=== PATIENT | female | born 1970 | race Caucasian/White ===

== ENCOUNTER 2018-02-16 07:28 | Day surgery (SDC) | END 2018-02-16 17:00 | disposition home or self-care (01) ==

== ENCOUNTER 2018-10-31 09:28 | Emergency (ER) | payer MEDICAID ==
[~2018-10-31] VITALS: Wt 72.9 kg
[~2018-10-31 09:28] MED LIST: [UNRECOGNIZED DRUG - OTHER] PO
[2018-10-31] MEDS ORDERED: KETOROLAC 30 MG INJ IV STA (10:22)
[2018-10-31] MEDS ORDERED: SOD CHLORIDE 0.9% 1,000 ML IV STA (12:27)
[2018-10-31] MEDS ORDERED: SOD CHLORIDE 0.9% 100 ML ONE (12:36)
[2018-10-31] MEDS ORDERED: IOHEXOL 100 ML ONE (12:36)
[2018-10-31 14:26] VITALS: BP 137/74; PULSE 58; RESP 18
[2018-10-31] MEDS ORDERED: IBUP-1542 PO (14:29)
--- NOTE | 2018-10-31 14:33 | ERD ---
ER Documentation Chief Complaint Chief Complaint CWP RAD BACK, ARMS, X 5 DAYS HPI Patient is a 47-year-old female with rheumatoid arthritis who presents with chest pain. Her symptoms started on Monday. The pain is been constant and sharp and radiates to her left arm. Today it was worse with deep breaths and moving. She has no treatment as of yet. Upon review of old medical records the patient has multiple visits for various complaints. She does not currently have a primary doctor. ROS All systems reviewed and are negative except as per history of present illness. Medications Home Meds Active Scripts Ibuprofen* (Motrin*) 600 Mg Tab, 600 MG PO Q6H PRN for PAIN AND OR ELEVATED TEMP, #30 TAB Prov:MARA CANO MD 10/31/18 Reported Medications [[place]] No Conflict Check, 25 MG PO DAILY PER PT GETS MEDICATION FROM [place] 02/16/18 Allergies Allergies: Coded Allergies: No Known Allergy (Unverified , 08/26/11) PMhx/Soc History of Surgery: Yes (chest tumors removed) Anesthesia Reaction: No Hx Neurological Disorder: No Hx Respiratory Disorders: No Hx Cardiac Disorders: No Hx Psychiatric Problems: No Hx Miscellaneous Medical Probl: Yes (RA) Hx Alcohol Use: No Hx Substance Use: No Hx Tobacco Use: No Smoking Status: Never smoker FmHx Family History: diabetes Physical Exam Vitals Vital Signs Date Temp Pulse Resp B/P (MAP) Pulse Ox O2 O2 Flow FiO2 Time Delivery Rate 10/31/18 58 18 137/74 100 Room Air 14:26 (95) 10/31/18 98.7 68 16 119/72 98 Room Air 11:21 (88) 10/31/18 99.1 77 18 141/80 99 09:33 (100) Physical Exam Const: No acute distress Head: Atraumatic Eyes: Normal Conjunctiva ENT: Normal External Ears, Nose and Mouth. Neck: Full range of motion. No meningismus. Resp: Clear to auscultation bilaterally Cardio: Regular rate and rhythm, no murmurs, chest wall pain with palpation Abd: Soft, non tender, non distended. Normal bowel sounds Skin: No petechiae or rashes Back: No midline or flank tenderness Ext: No cyanosis, or edema Neur: Awake and alert Psych: Normal Mood and Affect Result Diagram: 10/31/18 1030 10/31/18 1030 Results 24 hrs Laboratory Tests Test 10/31/18 10:30 10/31/18 10:36 White Blood Count 8.9 10^3/ul Red Blood Count 4.79 10^6/ul Hemoglobin 9.9 g/dl Hematocrit 33.2 % Mean Corpuscular Volume 69.3 fl Mean Corpuscular Hemoglobin 20.7 pg Mean Corpuscular Hemoglobin Concent 29.8 g/dl Red Cell Distribution Width 18.4 % Platelet Count 335 10^3/UL Mean Platelet Volume 9.7 fl Immature Granulocytes % 0.600 % Neutrophils % 61.4 % Lymphocytes % 30.2 % Monocytes % 6.8 % Eosinophils % 0.7 % Basophils % 0.3 % Nucleated Red Blood Cells % 0.0 /100WBC Immature Granulocytes # 0.050 10^3/ul Neutrophils # 5.5 10^3/ul Lymphocytes # 2.7 10^3/ul Monocytes # 0.6 10^3/ul Eosinophils # 0.1 10^3/ul Basophils # 0.0 10^3/ul Nucleated Red Blood Cells # 0.0 10^3/ul D-Dimer 1281.27 ng/ml D-Dimer Comment Sodium Level 141 mmol/L Potassium Level 3.8 mmol/L Chloride Level 105 mmol/L Carbon Dioxide Level 25 mmol/L Anion Gap 11 Blood Urea Nitrogen 10 mg/dl Creatinine 0.52 mg/dl Est Glomerular Filtrat Rate mL/min > 60 mL/min Glucose Level 129 mg/dl Calcium Level 9.4 mg/dl Troponin I < 0.012 ng/ml POC Beta HCG, Qualitative NEGATIVE Current Medications Medications Dose Sig/Eder Start Time Status Last (Trade) Ordered Route PRN Stop Time Admin Dose Reason Admin Ketorolac 30 mg ONCE STAT 10/31/18 DC 10/31/18 Tromethamine IV 10:22 10:57 (Toradol) 10/31/18 10:23 Sodium 1,000 ml @ Q1H STAT 10/31/18 DC 10/31/18 Chloride 1,000 mls/hr IV 12:27 12:41 10/31/18 13:26 IV Flush 10 ml STK-MED 10/31/18 DC 10/31/18 (NS 10 ml) ONCE .ROUTE 12:36 13:10 10/31/18 12:37 Sodium 100 ml @ ud STK-MED 10/31/18 DC 10/31/18 Chloride ONCE .ROUTE 12:36 13:10 10/31/18 12:37 Iohexol 100 ml @ ud STK-MED 10/31/18 DC 10/31/18 ONCE .ROUTE 12:36 13:11 10/31/18 12:37 Procedures/MDM EKG read by me: Rate/Rhythm: Regular rate and rhythm at a rate of 72 Intervals: Normal Impression: No evidence of ischemia or arrhythmia Chest x-ray read by radiology. CT of the chest shows no pulmonary embolism per radiology. Patient is a 47-year-old female who presents with chest pain. Laboratory studies were negative and EKG was normal. Chest x-ray was negative. So CTA of the chest was performed to rule out pulmonary embolism. There is no sign of pulmonary embolism or dissection on her CTA of the chest. At this point I doubt acute coronary syndrome, pneumonia, pneumothorax, pulmonary embolism, or aortic dissection. The patient will be discharged and can follow-up with the local clinics within 24-48 hours. She will be given ibuprofen for pain. Departure Diagnosis: Primary Impression: Chest pain Chest pain type: unspecified Qualified Codes: R07.9 - Chest pain, unspecified Condition: Fair Patient Instructions: Chest Pain, Uncertain Cause [facility]: [facility] Usted se [place] hecho un examen mdico de control que le indica que no est en homero condicin que requiera tratamiento urgente en el Departamento de Emergencia. Un estudio ms profundo y el tratamiento de whelan condicin pueden esperar sin ningn riesgo hasta que usted sea atendida/o en el consultorio de whelan mdico o homero clnica. Es responsabilidad suya arreglar homero iris para el seguimiento del leah. MANEJO DE CONDICIONES NO URGENTES EN EL FUTURO 1) Si usted tiene un mdico de atencin primaria: Usted debera llamar a whelan mdico de atencin primaria antes de venir al departamento de emergencia. Despus de las horas de consultorio, whelan doctor o whelan asociado/a est disponible por telfono. El mdico o enfermero de brianna en el servicio telefnico puede asesorarle por harshad medio para atender el problema, o leah contrario se puede programar homero iris. 2) Si usted no tiene un mdico de atencin primaria: Llame al mdico o clnica de referencia que aparece abajo courtney las horas de consultorio para hacer homero iris para que le vean. CLINICAS: [facility] [id number] [facility] [phone] [facility] [phone] [place] [phone] [id number] [facility] [phone] [address] [facility] [address] [facility]. [phone] [address] Additional Instructions: Llame al doctor MAANA y amirah homero IRIS PARA DENTRO DE 1-2 MILAN.Dgale a la secretaria que nosotros le instruimos hacer esta iris.Avise o llame si whelan condicin se empeora antes de la iris. Regresa aqui si peor o no mejor. MARA CANO MD Oct 31, 2018 14:33
== END 2018-10-31 14:59 | disposition home or self-care (01) ==
LOC: E/R 09:28
DX: R07.89 Other chest pain (principal)
CPT/HCPCS: 36415; 71045; 71275; 80048; 81025; 84484; 85025; 85378; 93005; 96374; J1885; J7030; Q9967; Z7502; Z7610